=== PATIENT | male | born 1985 | race Caucasian/White ===

== ENCOUNTER → 2017-03-03 | Outpatient (CLI) | payer OTHER | END | disposition home or self-care (01) | LOC: CFH 09:04 | PROVIDERS: ATTEND Family Medicine | DX: K40.90 Unilateral inguinal hernia, without obstruction or gangrene, not specified as recurrent (principal) | CPT/HCPCS: 76857 ==

== ENCOUNTER → 2017-11-10 | Outpatient (CLI) | payer OTHER | END | disposition home or self-care (01) | LOC: CFH 13:33 | PROVIDERS: ATTEND Family Medicine | DX: M50.30 Other cervical disc degeneration, unspecified cervical region (principal) | CPT/HCPCS: 72141 ==